=== PATIENT | female | born 1975 | race American Indian/Alaskan Native ===

== ENCOUNTER 2016-09-15 03:14 | Inpatient (IN) | payer BC, OTHER ==
[2016-09-15] MEDS ORDERED: TYLENOL ONE (03:29)
[2016-09-15] MEDS ORDERED: TYLENOL PO ONE (03:40)
[2016-09-15 04:36] LABS: Anion Gap 18 mmol/L; BUN/Creatinine Ratio 11.66; Basophils % (Auto) 0.4 % (0.0-1.8); Blood Urea Nitrogen 7 mg/dL (7-17); Calcium 8.2 mg/dL (8.4-10.2); Carbon Dioxide 22 mmol/L (22-30); Eosinophils % (Auto) 2.1 % (0.0-4.3); Glucose 131 mg/dL (65-100); Hematocrit 38.9 % (30.3-42.9); Hemoglobin 12.3 gm/dl (10.1-14.3); Mean Corpuscular HGB Conc 32 % (30-34); Mean Corpuscular Hemoglobin 26 pg (28-32); Mean Corpuscular Volume 84 fl (79-97); Platelet Count 319 K/mm3 (140-440); Potassium 3.7 mmol/L (3.6-5.0); Red Blood Count 4.67 M/mm3 (3.65-5.03); Red Cell Distribution Width 14.5 % (13.2-15.2); Sodium 140 mmol/L (137-145); White Blood Count 12.3 K/mm3 (4.5-11.0)
[2016-09-15 05:00] LABS: INR 0.96 (0.87-1.13)
[2016-09-15 05:01] LABS: Partial Thromboplastin Time 31.4 Sec. (24.2-36.6)
[2016-09-15 05:22] LABS: Bilirubin,Urine NEG (Negative); Blood,Urine SM (Negative); Ketones,Urine NEG (Negative); Leukocyte Esterase,Urine NEG (Negative); Mucus,Urine FEW /HPF; Nitrite,Urine NEG (Negative); Protein,Urine <15 mg/dL mg/dL (Negative); Urobilinogen,Urine < 2.0 mg/dL (<2.0)
--- NOTE | 2016-09-15 13:02 | Emergency Department Report ---
ED Chest Pain HPI - General Chief Complaint: Chest Pain Stated Complaint: CHEST PAIN/L ARM NUMBNESS Time Seen by Provider: 09/15/16 12:49 Source: patient Mode of arrival: Ambulatory Limitations: No Limitations - History of Present Illness Initial Comments: This is a 41-year-old Afro-[place]ian female presents the emergency department from home with complaint of midsternal chest pain that began yesterday morning, , and has been going on since. However the pain has improved but not resolved. It is associated with some left hand and arm numbness and/or paresthesias. She has some intermittent shortness of breath as well. The patient says that the pain worsens with laying down flat and certain movements of her body. There are no alleviating factors. She did not take anything for symptoms prior to presentation. She denies any past medical history and is not on any chronic medications. No Recent travel or sick contacts at home. She does not have a primary care doctor or bookmaker's clerk. Severity scale (0 -10): 8 - Related Data Previous Rx's Medication Instructions Recorded Last Taken Type Cyclobenzaprine [Flexeril 10mg] 10 mg PO TID PRN #12 tablet 04/24/14 Unknown Rx Doxycycline [Vibramycin CAP] 100 mg PO BID #14 capsule 04/24/14 Unknown Rx Pantoprazole [Protonix] 20 mg PO BID #60 tablet. 04/30/14 Unknown Rx Amoxicillin/K Clav Tab [Augmentin 1 each PO Q8HR #20 tablet 07/08/14 Unknown Rx 500 mg] Lisinopril [Zestril TAB] 10 mg PO QDAY #20 tablet 07/08/14 Unknown Rx predniSONE [Deltasone] 20 mg PO BID #8 tablet 07/08/14 Unknown Rx HYDROcodone/APAP 5-325 [[place] 1 each PO Q8HR PRN #14 tablet 01/08/15 Unknown Rx 5-325 mg TAB] Meloxicam 15 mg PO QDAY #30 tablet 01/08/15 Unknown Rx Amoxicillin/K Clav Tab [Augmentin 1 tab PO Q12HR #20 tab 04/27/15 Unknown Rx 875 mg] Promethazine /Codeine 5 ml PO Q6H PRN #120 ml 04/27/15 Unknown Rx [Phenergan/Codeine 6.25-10 mg/5Ml] Allergies Allergy/AdvReac Type Severity Reaction Status Date / Time No Known Allergies Allergy Verified 07/12/15 22:06 MARGAUX score - Margaux Score Age > 65: (0) No Aspirin use within the Past 7 Days: (0) No 3 or more CAD Risk Factors: (0) No 2 or more Angina events in past 24 hrs: (1) Yes Known CAD with more than 50% Stenosis: (0) No Elevated Cardiac Markers: (0) No ST Deviation Greater than 0.5mm: (0) No MARGAUX Score: 1 ED Review of Systems ROS: Stated complaint: CHEST PAIN/L ARM NUMBNESS Other details as noted in HPI Comment: All other systems reviewed and negative Constitutional: denies: chills, fever Eyes: denies: eye pain, eye discharge, vision change ENT: denies: ear pain, throat pain Respiratory: shortness of breath. denies: cough, wheezing Cardiovascular: chest pain. denies: palpitations Gastrointestinal: denies: abdominal pain, nausea, diarrhea Genitourinary: denies: urgency, dysuria, discharge Musculoskeletal: denies: back pain, joint swelling, arthralgia Skin: denies: rash, lesions Neurological: denies: headache, weakness, paresthesias ED Past Medical Hx - Past Medical History Previous Medical History?: Yes Hx Hypertension: Yes Additional medical history: LEFT ROTATOR CUFF TEAR. Obesity - Surgical History Past Surgical History?: Yes Additional Surgical History: tubal ligation, L wrist surgery - Social History Smoking Status: Never Smoker Substance Use Type: None - Medications Home Medications: Home Medications Medication Instructions Recorded Confirmed Last Taken Type Cyclobenzaprine [Flexeril 10mg] 10 mg PO TID PRN #12 tablet 04/24/14 Unknown Rx Doxycycline [Vibramycin CAP] 100 mg PO BID #14 capsule 04/24/14 Unknown Rx Pantoprazole [Protonix] 20 mg PO BID #60 tablet. 04/30/14 Unknown Rx Amoxicillin/K Clav Tab [Augmentin 1 each PO Q8HR #20 tablet 07/08/14 Unknown Rx 500 mg] Lisinopril [Zestril TAB] 10 mg PO QDAY #20 tablet 07/08/14 Unknown Rx predniSONE [Deltasone] 20 mg PO BID #8 tablet 07/08/14 Unknown Rx HYDROcodone/APAP 5-325 [[place] 1 each PO Q8HR PRN #14 tablet 01/08/15 Unknown Rx 5-325 mg TAB] Meloxicam 15 mg PO QDAY #30 tablet 01/08/15 Unknown Rx Amoxicillin/K Clav Tab [Augmentin 1 tab PO Q12HR #20 tab 04/27/15 Unknown Rx 875 mg] Promethazine /Codeine 5 ml PO Q6H PRN #120 ml 04/27/15 Unknown Rx [Phenergan/Codeine 6.25-10 mg/5Ml] ED Physical Exam - General Limitations: No Limitations - Other Other exam information: GENERAL: The patient is well-developed well-nourished. HEENT: Normocephalic. Atraumatic. Extraocular motions are intact. Patient has moist mucous membranes. Pupils equal reactive to light bilaterally. NECK: Supple. Trachea is midline. CHEST/LUNGS: Clear to auscultation. There is no respiratory distress noted. Patient's midsternal chest discomfort is reproducible to palpation of the chest wall. HEART/CARDIOVASCULAR: Regular. There is no tachycardia. There is no gallop rub or murmur. ABDOMEN: Abdomen is soft, nontender. Patient has normal bowel sounds. There is no abdominal distention. Obese habitus. SKIN: There is no rash. There is no edema. There is no diaphoresis. NEURO: The patient is awake, alert, and oriented. The patient is cooperative. The patient has no focal neurologic deficits. The patient has normal speech. MUSCULOSKELETAL: There is no tenderness or deformity. There is no limitation range of motion. There is no evidence of acute injury. Radial pulse +2 over 4 bilaterally. Cap refill less than 2 seconds. ED Course Vital Signs 09/15/16 09/15/16 09/15/16 03:20 11:24 13:20 Temperature 98.9 F 97.6 F 98.8 F Pulse Rate 87 75 70 Respiratory 20 18 19 Rate Blood Pressure 153/101 Blood Pressure 158/97 151/73 [Right] O2 Sat by Pulse 100 100 99 Oximetry 09/15/16 09/15/16 13:46 13:47 Temperature Pulse Rate Respiratory 20 20 Rate Blood Pressure Blood Pressure [Right] O2 Sat by Pulse Oximetry ED Medical Decision Making - Lab Data Result diagrams: 09/15/16 03:36 09/15/16 03:36 - EKG Data -: EKG Interpreted by Me EKG shows normal: sinus rhythm (with sinus arrhythmia), axis, intervals, QRS complexes, ST-T waves Rate: normal - EKG Data When compared to previous EKG there are: previous EKG unavailable Interpretation: normal EKG (sinus rhythm with sinus arrhythmia) - Radiology Data Radiology results: image reviewed interpreted by me: Chest x-ray did not show any acute process. Heart is normal shape and size. No effusions. No pneumothorax. No signs of pneumonia seen. - Medical Decision Making 41-year-old female presents with 24-36 hour midsternal chest pain with some left arm numbness and her paresthesias and intermittent shortness of breath. EKG does not show any signs of ST elevation PA. So far the patient has a negative troponins 2 and negative d-dimer. Patient's midsternal chest pain is reproducible, however it does not improve with pain medication and the patient continues to have left arm numbness/paresthesias. Chest x-ray does not show any acute process. Patient has a history of hypertension and morbid obesity. She has not had a full cardiac workup including stress test since April 2014. Therefore my plan will be to admit the patient to the hospital for further evaluation, serial troponins and either a stress test or cardio consultation. Patient has been accepted for admission by the hospitalist, Dr. Bhakta. - Differential Diagnosis PA, CHF, PE, pneumonia Critical Care Time: No Critical care attestation.: If time is entered above; I have spent that time in minutes in the direct care of this critically ill patient, excluding procedure time. ED Disposition Clinical Impression: Numbness and tingling in left arm Chest pain Qualifiers: Chest pain type: unspecified Qualified Code(s): R07.9 - Chest pain, unspecified Hypertension Qualifiers: Hypertension type: essential hypertension Qualified Code(s): I10 - Essential ( primary) hypertension Disposition: OP ADMITTED IP TO THIS HOSP Is pt being admited?: Yes Condition: Stable Instructions: Chest Pain (ED), Hypertension (ED) Referrals: PRIMARY CARE, [Primary Care Provider] - 3-5 Days Time of Disposition: 14:55
[2016-09-15] MEDS ORDERED: BABY ASPIRIN PO ONE (13:07)
[2016-09-15] MEDS ORDERED: PERCOCET 5/325 PO ONE (13:07)
--- NOTE | 2016-09-15 13:34 | XRay Report ---
PORTABLE CHEST: Cough An AP portable view of the chest demonstrates a normal cardiac contour considering the limits of this technique. The lungs are clear with no evidence of infiltrate, fluid or failure. IMPRESSION: Normal portable chest.
--- NOTE | 2016-09-15 15:03 | Admit Criteria Form ---
Admission Criteria Documentation: CARDIOLOGY GRG Clinical Indications for Admission to Inpatient Care ( Place 'X' for any and all applicable criteria): Hospital admission is needed for appropriate care of the patient because of ANY ONE of the following (1): [ ] I. Hemodynamic instability as indicated by ALL of the following (1)(2)(3) (4)(5) [ ]a) Vital signs or other findings not as expected for chronic patient condition or baseline [ ]b) Instability indicated by ANY ONE of the following: [ ]i) Hypotension [ ]ii) Symptomatic Tachycardia unresponsive to treatment ( e.g., analgesia, fluids, sedation as indicated) [ ]iii) Inadequate perfusion indicated by ANY ONE of the following: [ ] 1) Lactic acidosis (> 2 mmol/L) [ ] 2) New abnormal capillary refill (> 3 seconds) [ ] 3) Reduced urine output [ ] 4) New altered mental status [ ]iv) Orthostatic vital sign changes unresponsive to treatment (e.g., fluids) [ ]v) IV inotropic or vasopressor medication required to maintain adequate blood pressure or perfusion [ ] II. Severe heart failure as indicated by ANY ONE of the following(17)(18) [ ]a) Respiratory distress [ ]b) Hypotension [ ]c) Anasarca (refractory to outpatient therapy) [ ]d) Cardiac arrhythmias of immediate concern [ ]e) Myocardial ischemia [ ] III. Cardiac arrhythmias or findings of immediate concern indicated by ANY ONE of the following (19)(20): [ ] a) Heart rhythms that are inherently dangerous or unstable indicated by ANY ONE of the following (21)(22)(23): [ ] i) Resuscitated ventricular fibrillation or cardiac arrest [ ] ii) Ventricular escape rhythm [ ] iii) Sustained ventricular tachycardia (30 seconds or more of ventricular rhythm at greater than 100 beats per minute) [ ] iv) Nonsustained ventricular tachycardia and ANY ONE of the following: [ ] 1) Suspected cardiac ischemia as cause or consequence of ventricular tachycardia [ ] 2) In setting of acute myocarditis [ ] b) Unstable cardiac conduction defects indicated by ANY ONE of the following(23)(24)(25) [ ] i) Type II second-degree atrioventricular block [ ]ii) Third-degree atrioventricular block [ ]iii) New-onset left bundle branch block with suspected myocardial ischemia [ ]c) Any heart rhythm and ANY ONE of the following (21)(22)(26)(27) (28) [ ] i) Continuous long-term ECG monitoring needed (e.g., initiation of drug requiring monitoring for more than 24 hours) [ ] ii) Patient has automatic implanted cardioverter defibrillator that is repeatedly firing, malfunctioning, or in need of immediate adjustment of settings beyond the scope of ambulatory or observation care [ ]d) Heart rhythms of concern due to ANY ONE of the following: [ ] i) Hypotension [ ] ii) Respiratory distress [ ] iii) Association with other significant symptoms (e.g., bradycardia with syncope or ongoing dizziness, supraventricular tachycardia with chest pain (14)(15)(17) [ ] IV. Monitoring for cardiac contusion beyond the scope of observation care needed [A](30)(31)(32) [ ] V. Surgical or device complication (e.g., valve replacement complication , pacemaker dysfunction) (35)(41)(44)(45)(46) [ ] . Inpatient palliative care needed. [B](49) Also use Inpatient Palliative Care Criteria [ ] VII. Nonbacterial thrombotic (marantic) endocarditis (36)(43)(47)(48) [X] VIII. Cardiology condition, symptom, or finding for which emergency and observation care has failed or are not considered appropriate. [ ] IX. Acute valvular disease requiring inpatient as indicated by ANY ONE of the following (41) [ ]a) Acute valvular regurgitation (42) [ ]b) Noninfectious valvulitis (43) [ ]c) Obstructive valve thrombosis [ ]d) Paravalvular leak [ ]e) Other significant valvular disorder remaining after emergency or observation level of care (as appropriate) [ ]X. Pericardial disease requiring inpatient treatment as indicated by ANY ONE of the following (33)(34)(35)(36)(37) [ ]a) Suspected tamponade (38)(39)(40) [ ]b) Hemopericardium [ ]c) Other significant pericardial disorder remaining after emergency or observation level of care (as appropriate) [ ] XI. Cardiac ischemia beyond scope of emergency and observation care. [ ] XII. Hypertension requiring inpatient treatment as indicated by ANY ONE of the following (6)(7)(8) [ ]a) SBP greater than 220 mm Hg or DBP greater than 120 mmHg despite treatment [ ]b) SBP greater than 140 mm Hg or DBP greater than 100 mm Hg with evidence of acute end organ damage as indicated by ANY ONE of the following [ ] i) Altered mental status [ ] ii) Acute renal failure as indicated by new onset of ANY ONE of the following (9)(10)(11)(12)(13) [ ]1) 3-fold rise in serum creatinine from baseline [ ]2) Serum creatinine greater than 4 mg/dL ( 354 micromoles/L) with acute rise greater than 0.5 mg/dL (44.2 micromoles/L) [ ]3) Reduction of more than 75% in estimated glomerular filtration rate from baseline [ ]4) Estimated glomerular filtration rate less than 35 mL/min/1.73m2 (0.59 mL/sec/1.73m2) in child up to 18 years of age [ ]5) Cessation of urine output indicated by ALL of the following [ ]A. Adequate volume status [ ]B. Inadequate urine output as indicated by ANY ONE of the following [ ]a. Urine output less than 0.3 mL/kg/hr for 24 hours [ ]b. Anuria (urine output less than 0.1 mL/kg/hr) for 12 hours [ ] iii) Aortic dissection [ ] iv) Myocardial Ischemia [ ] v) Left ventricular heart failure [ ]vi) Retinal Hemorrhage [ ]vii) Other significant finding [ ]c) Hypertension in child requiring inpatient treatment as indicated by ALL of the following(14)(15)(16) [ ] i) Outpatient treatment not effective, not available, or not appropriate [ ]ii) SBP or DBP greater than 95th percentile for age [ ]iii) Evidence of acute end organ damage as indicated by ANY ONE of the following [ ]1) Altered mental status [ ]2) Acute renal failure as indicated by new onset of ANY ONE of the following(9)(10)(11)(12)(13) [ ]A. 3-fold rise in serum creatinine from baseline [ ]B. Serum creatinine greater than 4 mg/dL (354 micromoles/L) with acute rise greater than 0.5 mg/dL (44.2 micromoles/L) [ ]C. Reduction of more than 75% in estimated glomerular filtration rate from baseline [ ]D. Estimated glomerular filtration rate less than 35 mL/min/1.73m2 (0.59 mL/sec/1.73m2) in child up to 18 years of age [ ]E. Cessation of urine output indicated by ALL of the following [ ]a. Adequate volume status [ ]b. Inadequate urine output as indicated by ANY ONE of the following [ ]i) Urine output less than 0.3 mL/kg/hr for 24 hours [ ]ii) Anuria ( urine output less than 0.1 mL/kg/hr) for 12 hours [ ]3) Severe headache [ ]4) Visual disturbance [ ]5) Retinal hemorrhage [ ]6) Other significant finding [ ]XIII. Complications of transplanted heart indicated by ANY ONE of the following(61): [ ]a) Acute graft rejection requiring inpatient management (eg, intravenous immunosuppression)(62)(63) [ ]b) Acute graft heart failure indicated by ANY ONE of the following(64): [ ]i) Hemodynamic instability [ ]ii) Cardiac arrhythmias of immediate concern [ ]iii) Pulmonary edema that is very severe (eg, mechanical ventilation needed, imminent or likely, need for 100% oxygen to keep oxygen saturation above 90%) [ ]iv) Pulmonary edema that is persistent as indicated by ALL of the following: [ ]1) New need for oxygen therapy to keep oxygen saturation above 90% (or increased FiO2 need from baseline) [ ]2) Has not improved sufficiently with emergency department or observation care IV diuretics or other heart failure treatments[E] [ ]v) Altered mental status that is severe or persistent [ ]vi) Increased creatinine (new on laboratory test) with reduction of more than 50% in estimated glomerular filtration rate from baseline [ ]vii) Progressively (ongoing) rising creatinine (known from past laboratory test) with reduction of more than 25% in estimated glomerular filtration rate from baseline [ ]viii) Acute renal failure [ ]ix) Acute peripheral ischemia (eg, examination shows pulseless, cool, mottled, or cyanotic extremity) [ ]x) Pulmonary artery catheter monitoring needed [ ]xi) Other sign or symptom of heart failure requiring inpatient treatment (ie, too severe or not responsive to outpatient and observation care treatment) [ ]c) Infection requiring inpatient management (eg, Hemodynamic instability, need for intravenous antimicrobial treatment)(66)(67)(68)(69)(70) [ ]d) Cardiac allograft vasculopathy requiring inpatient management ( eg evidence of cardiac ischemia)(71) [ ]e) Other complication of transplanted heart (eg, stroke, severe pulmonary hypertension, severe valvular dysfunction) requiring inpatient management(72) The original [facility] content created by [facility] has been revised. The portions of the content which have been revised are identified through the use of italic text or in bold, and [facility] has neither reviewed nor approved the modified material. All other unmodified content is copyright [facility] [employer]. Please see references footnoted in the original [facility] [employer] edition 2016 Admission Criteria Met: Yes
--- NOTE | 2016-09-15 15:55 | History and Physical Report ---
History of Present Illness Date of examination: 09/15/16 Chief complaint: Chest pain History of present illness: 21-year-old -[place] female with no significant past medical history presented to ED complaining of midsternal chest pain that started yesterday. Sharp pain, constant, 9 out of 10, with numbness of the left arm. Associated with mild shortness of breath and diaphoresis. Patient denied constipation, leg swelling, cough. REVIEW OF SYSTEMS: GENERAL: no weight change, no fatigue, no fever HEAD: no head ache EYES: no blurry vision, no acute visual loss EARS: no hearing loss, no discharge, no earache NOSE: no stuffiness, no sneezing, no discharge MOUTH, THROAT AND NECK: no bleeding gums, no sore throat, no swollen neck CARDIAC: no palpitations, no dyspnea on exertion, no orthopnea, no PND, no edema , + chest pain RESPIRATORY:mild shortness of breath, no wheeze, no cough, no sputum, no hemoptysis, no asthma GI: no decreased appetite, no nausea, no vomiting, no dysphagia, no diarrhea, no constipation, no abdominal pain URINARY: no change in frequency, no urgency, no polyuria, no hematuria, no incontinence MUSCULOSKELETAL: no muscle weakness, no pain, no joint stiffness NEUROLOGIC: no loss of sensation/numbness, no tingling, no tremors, no weakness/ paralysis HEMATOLOGIC: no anemia, no easy bruising SKIN: no rashes ENDOCRINE: no heat/cold intolerance, no polyuria, no polydipsia, no thyroid problems, no diabetes PSYCHIATRIC: no anxiety, no depression, no suicidal ideations Past History Past Medical History: No medical history Past Surgical History: Other (tubal ligation) Social history: full code. denies: smoking, alcohol abuse, prescription drug abuse, IV drug use Family history: no significant family history Medications and Allergies Allergies Allergy/AdvReac Type Severity Reaction Status Date / Time No Known Allergies Allergy Verified 07/12/15 22:06 Home Medications Medication Instructions Recorded Confirmed Last Taken Type No Known Home Medications [No 09/15/16 09/15/16 Unknown History Reported Home Medications] Exam - Physical Exam Narrative exam: Not in cardiopulmonary distress. The patient appeared well nourished and normally developed. Vital signs as documented. Head exam is unremarkable. No scleral icterus . Neck is without jugular venous distension, thyromegaly, or carotid bruits. Lungs are clear to auscultation. Cardiac exam reveals regular rate and Rhythm. First and second heart sounds normal. No murmurs, rubs or gallops. Abdominal exam reveals normal bowel sounds, no masses, no organomegaly and no aortic enlargement. Extremities are nonedematous and both femoral and pedal pulses are normal. DIGITAL ACCOUNT COORDINATOR: Alert and oriented 3. No focal weakness. - Constitutional Vitals: Temp Pulse Resp BP Pulse Ox 98.8 F 70 20 151/73 99 09/15/16 13:20 09/15/16 13:20 09/15/16 13:47 09/15/16 13:20 09/15/16 13:20 Results - Labs CBC & Chem 7: 09/15/16 03:36 09/15/16 03:36 Labs: Laboratory Last Values WBC 12.3 K/mm3 (4.5-11.0) H 09/15/16 03:36 RBC 4.67 M/mm3 (3.65-5.03) 09/15/16 03:36 Hgb 12.3 gm/dl (10.1-14.3) 09/15/16 03:36 Hct 38.9 % (30.3-42.9) 09/15/16 03:36 MCV 84 fl (79-97) 09/15/16 03:36 MCH 26 pg (28-32) L 09/15/16 03:36 MCHC 32 % (30-34) 09/15/16 03:36 RDW 14.5 % (13.2-15.2) 09/15/16 03:36 Plt Count 319 K/mm3 (140-440) 09/15/16 03:36 Lymph % (Auto) 19.0 % (13.4-35.0) 09/15/16 03:36 [place] % (Auto) 7.5 % (0.0-7.3) H 09/15/16 03:36 Eos % (Auto) 2.1 % (0.0-4.3) 09/15/16 03:36 Baso % (Auto) 0.4 % (0.0-1.8) 09/15/16 03:36 Lymph # 2.3 K/mm3 (1.2-5.4) 09/15/16 03:36 [place] # 0.9 K/mm3 (0.0-0.8) H 09/15/16 03:36 Eos # 0.3 K/mm3 (0.0-0.4) 09/15/16 03:36 Baso # 0.0 K/mm3 (0.0-0.1) 09/15/16 03:36 Seg Neutrophils % 71.0 % (40.0-70.0) H 09/15/16 03:36 Seg Neutrophils # 8.8 K/mm3 (1.8-7.7) H 09/15/16 03:36 PT 12.7 Sec. (12.2-14.9) 09/15/16 03:36 INR 0.96 (0.87-1.13) 09/15/16 03:36 APTT 31.4 Sec. (24.2-36.6) 09/15/16 03:36 D-Dimer 175.16 ng/mlDDU (0-234) 09/15/16 03:36 Sodium 140 mmol/L (137-145) 09/15/16 03:36 Potassium 3.7 mmol/L (3.6-5.0) 09/15/16 03:36 Chloride 104.0 mmol/L (98-107) 09/15/16 03:36 Carbon Dioxide 22 mmol/L (22-30) 09/15/16 03:36 Anion Gap 18 mmol/L 09/15/16 03:36 BUN 7 mg/dL (7-17) 09/15/16 03:36 Creatinine 0.6 mg/dL (0.7-1.2) L 09/15/16 03:36 Estimated GFR > 60 ml/min 09/15/16 03:36 BUN/Creatinine Ratio 11.66 % 09/15/16 03:36 Glucose 131 mg/dL (65-100) H 09/15/16 03:36 Calcium 8.2 mg/dL (8.4-10.2) L 09/15/16 03:36 Troponin T < 0.010 ng/mL (0.00-0.029) 09/15/16 09:21 HCG, Qual Negative (Negative) 09/15/16 03:36 Urine Color Yellow (Yellow) 09/15/16 04:37 Urine Turbidity Clear (Clear) 09/15/16 04:37 Urine pH 6.0 (5.0-7.0) 09/15/16 04:37 Ur Specific [place] 1.012 (1.003-1.030) 09/15/16 04:37 Urine Protein <15 mg/dl mg/dL (Negative) 09/15/16 04:37 Urine Glucose (UA) Neg mg/dL (Negative) 09/15/16 04:37 Urine Ketones Neg mg/dL (Negative) 09/15/16 04:37 Urine Blood Sm (Negative) 09/15/16 04:37 Urine Nitrite Neg (Negative) 09/15/16 04:37 Urine Bilirubin Neg (Negative) 09/15/16 04:37 Urine Urobilinogen < 2.0 mg/dL (<2.0) 09/15/16 04:37 Ur Leukocyte Esterase Neg (Negative) 09/15/16 04:37 Urine WBC (Auto) 1.0 /HPF (0.0-6.0) 09/15/16 04:37 Urine RBC (Auto) 0.0 /HPF (0.0-6.0) 09/15/16 04:37 U Epithel Cells (Auto) 4.0 /HPF (0-13.0) 09/15/16 04:37 Urine Mucus Few /HPF 09/15/16 04:37 Assessment and Plan Assessment and plan: Chest pain - Repeat cardiac enzymes and EKG - Stress test tomorrow Obesity - counselled about calorie restriction DVT prophylaxis - Lovenox Disposition - to telemetry floor. Advance Directives: Yes VTE prophylaxis?: Chemical Plan of care discussed with patient/family: Yes
[2016-09-15] MEDS ORDERED: SODIUM CHLORIDE FLUSH SYRINGE 10 ML IV PRN (16:07)
[2016-09-15] MEDS: MORPHINE IV PRN ×2 (19:11→23:53)
[2016-09-15 19:51] LABS: Creatine Kinase MB 1.3 ng/mL (0.0-4.0)
[2016-09-15 19:52] LABS: Creatine Kinase 175 units/L (30-135)
[2016-09-15 22:52] LABS: Creatine Kinase MB 1.3 ng/mL (0.0-4.0)
[2016-09-15 22:53] LABS: Creatine Kinase 156 units/L (30-135)
[2016-09-16] MEDS: MORPHINE IV PRN ×2 (04:57→15:49)
[2016-09-16] MEDS ORDERED: LEXISCAN IV ONE ×2 (08:26→10:34)
[2016-09-16] MEDS ORDERED: BABY ASPIRIN PO SCH (10:00)
[2016-09-16 13:41] LABS: Basophils % (Auto) 0.3 % (0.0-1.8); Eosinophils % (Auto) 3.1 % (0.0-4.3); Hematocrit 37.1 % (30.3-42.9); Hemoglobin 12.1 gm/dl (10.1-14.3); Mean Corpuscular HGB Conc 33 % (30-34); Mean Corpuscular Hemoglobin 27 pg (28-32); Mean Corpuscular Volume 82 fl (79-97); Platelet Count 314 K/mm3 (140-440); Red Blood Count 4.51 M/mm3 (3.65-5.03); Red Cell Distribution Width 14.7 % (13.2-15.2); White Blood Count 8.9 K/mm3 (4.5-11.0)
[2016-09-16 14:06] LABS: Anion Gap 14 mmol/L; BUN/Creatinine Ratio 11.66; Blood Urea Nitrogen 7 mg/dL (7-17); Calcium 8.4 mg/dL (8.4-10.2); Carbon Dioxide 27 mmol/L (22-30); Chloride 102.5 mmol/L (98-107); Glucose 136 mg/dL (65-100); Potassium 3.7 mmol/L (3.6-5.0); Sodium 140 mmol/L (137-145)
[2016-09-16] MEDS ORDERED: NACL ONE (15:29)
--- NOTE | 2016-09-16 16:21 | Discharge Summary ---
Providers - Providers Date of Admission: 09/15/16 20:26 Date of discharge: 09/16/16 Attending physician: ROSA ELENA BLANDON MD Primary care physician: RN RELIEF CHARGE Hospitalization Reason for admission: chest pain Condition: Stable Hospital course: 21-year-old -[place] female with no significant past medical history presented to ED complaining of midsternal chest pain that started yesterday. Sharp pain, constant, 9 out of 10, with numbness of the left arm. Associated with mild shortness of breath and diaphoresis. Patient denied constipation, leg swelling, cough. Patient presented to have a stress test that was negative. Again, further discussion the patient denies any relationship with this pain to food. The pain is left midsternal area. With no right upper quadrant pain. I did discuss the findings of the CTA which I did to rule out pulmonary embolism due to the pleuritic nature also of this pain. It is also reproducible. This included a findings of lesion on the kidney for which the patient is to have a follow-up with a primary care physician. Weight loss although it was also discussed in detail. Discharge diagnosis * Atypical chest pain likely costochondritis * Cholelithiasis * Region in the upper pole of the bilateral kidneys * Morbid obesity Disposition: DISCHARGED TO HOME OR SELFCARE Time spent for discharge: 35 mins Core Measure Documentation - Palliative Care Palliative Care/ Comfort Measures: Not Applicable - Core Measures Any of the following diagnoses?: none - VTE Discharge Requirements Deep Vein Thrombosis/Pulmonary Embolism Present on Admission: No Exam - Physical Exam Narrative exam: VITAL SIGNS: Reviewed. GENERAL: The patient appeared well nourished and normally developed. Vital signs as documented. HEAD: No signs of head trauma. EYES: Pupils are equal. Extraocular motions intact. EARS: Hearing grossly intact. MOUTH: Oropharynx is normal. NECK: No adenopathy, no JVD. CHEST: Chest with clear breath sounds bilaterally. No wheezes, rales, or rhonchi. CARDIAC: Regular rate and rhythm. S1 and S2, without murmurs, gallops, or rubs. VASCULAR: No Edema. Peripheral pulses normal and equal in all extremities. ABDOMEN: Soft, without detectable tenderness. No sign of distention. No rebound or guarding, and no masses palpated. Bowel Sounds normal. MUSCULOSKELETAL: Muscle wall tenderness in the left substernal area Good range of motion of all major joints. Extremities without clubbing, cyanosis or edema. NEUROLOGIC EXAM: Alert and oriented x 3. No focal sensory or strength deficits. Speech normal. Follows commands. PSYCHIATRIC: Mood normal. SKIN: No rash or lesions. - Constitutional Vitals: Temp Pulse Resp BP Pulse Ox 97.7 F 104 H 20 159/93 100 09/16/16 08:00 09/16/16 11:01 09/16/16 15:49 09/16/16 11:01 09/16/16 05:37 Plan Activity: advance as tolerated, fall precautions Diet: low fat Special Instructions: smoking cessation Follow up with: PRIMARY CAREMD [Primary Care Provider] - 3-5 Days
--- NOTE | 2016-09-16 16:27 | Cat Scan Report ---
FINAL REPORT EXAM: CT ANGIO CHEST HISTORY: PE TECHNIQUE: Enhanced CT of the chest at 2.5 mm axial intervals following a pulmonary embolism protocol. Coronal and sagittal imaging were also obtained. Oblique coronal MIP projections were obtained. Contrast: 100 ml of Omnipaque 350 given IV. PRIORS: None. FINDINGS: There is no evidence for pulmonary embolism in the main pulmonary artery, right and left pulmonary arteries or their major distributions. However, CT does not exclude distal pulmonary emboli. There are numerous bilateral linear areas of atelectasis in each lung base, lingula, and right middle lobe. Otherwise, the lung parenchyma are expanded and clear with no evidence for parenchymal nodules, infiltrates, congestion, or pleural effusion. There is no evidence for mediastinal, hilar, or axillary adenopathy. Cardiovascular structures are within normal limits. Images through the lung bases include the upper abdomen which show multiple gallstones in the gallbladder. There is an ill-defined rounded area of hypodensity in the upper pole right kidney which may represent a cyst. This measures approximately 1.9 cm (axial image 106) and ultrasound is suggested. Similar finding is seen in the upper pole left kidney as well although not as defined. Bony structures demonstrate no focal abnormalities. Large spurs off the anterior aspect of the lower thoracic spine is seen. IMPRESSION: 1. no evidence for pulmonary embolism. 2. bilateral linear atelectasis. 3. cholelithiasis. 4. Areas of hypodensity in the upper pole of each kidney, ill-defined on this exam. Ultrasound is warranted to exclude cysts versus mass.
[2016-09-16 18:57] VITALS: BP 131/73
== END 2016-09-16 19:45 | disposition home or self-care (01) | DRG 206 ==
LOC: ED 03:14 → 4A 20:26
PROVIDERS: ADMIT Internal Medicine; ATTEND Internal Medicine
DX: M94.0 Chondrocostal junction syndrome [Tietze] (principal); Z68.41 Body mass index [BMI] 40.0-44.9, adult; I10 Essential (primary) hypertension; E66.9 Obesity, unspecified; E66.01 Morbid (severe) obesity due to excess calories; K80.20 Calculus of gallbladder without cholecystitis without obstruction; Z98.51 Tubal ligation status
CPT/HCPCS: 36415; 71010; 71275; 78452; 80048; 80061; 81001; 82550; 82553; 84484; 84703; 85025; 85379; 85610; 85730; 93005; 93010; 93017; 99285; A9502; J2270; J2785; Q9967

== ENCOUNTER 2019-05-13 09:08 | Emergency (ER) | payer SELFPAY ==
[2019-05-13] MEDS ORDERED: ASPIRIN 325 MG TAB PO ONE (09:48)
[2019-05-13] MEDS ORDERED: ASPIRIN 325 MG TAB ONE (09:51)
--- NOTE | 2019-05-13 10:42 | XRay Report ---
CHEST 1 VIEW INDICATION: Chest Pain. COMPARISON: 09/15/2016. FINDINGS: Support devices: None. Heart: Within normal limits. Lungs/Pleura: No acute air space or interstitial disease. Additional findings: None. IMPRESSION: No acute abnormality. Signer Name: Thierry Shafer MD Signed: 05/13/2019 10:38 AM Workstation Name: [id number]
[2019-05-13 11:07] LABS: Basophils % (Auto) 0.5 % (0.0-1.8); Eosinophils # (Auto) 0.2 K/mm3 (0.0-0.4); Eosinophils % (Auto) 2.8 % (0.0-4.3); Hemoglobin 12.2 gm/dl (10.1-14.3); Lymphocytes # (Auto) 1.3 K/mm3 (1.2-5.4); Lymphocytes % (Auto) 20.3 % (13.4-35.0); Mean Corpuscular HGB Conc 33 % (30-34); Mean Corpuscular Volume 83 fl (79-97); Monocytes # (Auto) 0.5 K/mm3 (0.0-0.8); Platelet Count 356 K/mm3 (140-440); Red Blood Count 4.44 M/mm3 (3.65-5.03); Red Cell Distribution Width 14.3 % (13.2-15.2)
[2019-05-13 11:31] LABS: BUN/Creatinine Ratio 15; Blood Urea Nitrogen 9 mg/dL (7-17); Calcium 8.6 mg/dL (8.4-10.2); Hemolysis Index 2
--- NOTE | 2019-05-13 11:31 | Emergency Department Report ---
ED Chest Pain HPI - General Chief Complaint: Chest Pain Stated Complaint: CHESTPAIN/LFT SHOULDER PAIN Time Seen by Provider: 05/13/19 10:19 Source: patient Mode of arrival: Ambulatory Limitations: No Limitations - History of Present Illness Initial Comments: 44 yo AA female comes to ER with l sided cp rad to her neck and LA. She has had this before. Has been seen in ER for the same. She has no cardiac hx. Takes no home meds and has not followed up with pcp regarding her pain. Movement makes the pain worse. Rest makes it better. -: Gradual, month(s) Pain Radiation: LUE Severity scale (0 -10): 8 Quality: aching Consistency: intermittent Improves With: remaining still Worsens With: movement Treatments Prior to Arrival: none Aspirin use within the Past 7 Days: (0) No - Related Data On Oral Contraceptives: No Previous Rx's Medication Instructions Recorded Last Taken Type Cyclobenzaprine [Flexeril] 10 mg PO TID PRN #10 tablet 05/13/19 Unknown Rx predniSONE [Deltasone] 20 mg PO DAILY #5 tablet 05/13/19 Unknown Rx Allergies Allergy/AdvReac Type Severity Reaction Status Date / Time No Known Allergies Allergy Verified 05/13/19 09:47 Heart Score - HEART Score History: Slightly suspicious EKG: Normal Age: < 45 Risk factors: No known risk factors Troponin: < normal limit HEART Score: 0 ED Review of Systems ROS: Stated complaint: CHESTPAIN/LFT SHOULDER PAIN Other details as noted in HPI Comment: All other systems reviewed and negative ED Past Medical Hx - Past Medical History Previous Medical History?: Yes Hx Hypertension: Yes Additional medical history: LEFT ROTATOR CUFF TEAR. Obesity - Surgical History Past Surgical History?: Yes Additional Surgical History: Tubal ligation - Family History Family history: no significant - Social History Smoking Status: Never Smoker Substance Use Type: None - Medications Home Medications: Home Medications Medication Instructions Recorded Confirmed Last Taken Type Cyclobenzaprine [Flexeril] 10 mg PO TID PRN #10 tablet 05/13/19 Unknown Rx predniSONE [Deltasone] 20 mg PO DAILY #5 tablet 05/13/19 Unknown Rx ED Physical Exam - General Limitations: No Limitations General appearance: alert, in no apparent distress - Head Head exam: Present: atraumatic, normocephalic - Eye Eye exam: Present: normal appearance - ENT ENT exam: Present: mucous membranes moist - Neck Neck exam: Present: normal inspection - Respiratory Respiratory exam: Present: normal lung sounds bilaterally. Absent: respiratory distress - Cardiovascular Cardiovascular Exam: Present: regular rate, normal rhythm. Absent: systolic murmur, diastolic murmur, rubs, gallop - GI/Abdominal GI/Abdominal exam: Present: soft, normal bowel sounds - Extremities Exam Extremities exam: Present: normal inspection - Back Exam Back exam: Present: normal inspection - Neurological Exam Neurological exam: Present: alert, oriented X3 - Psychiatric Psychiatric exam: Present: normal affect, normal mood - Skin Skin exam: Present: warm, dry, intact, normal color. Absent: rash ED Course Vital Signs 05/13/19 05/13/19 05/13/19 09:15 10:52 11:00 Temperature 98.3 F Pulse Rate 65 73 66 Respiratory 18 16 18 Rate Blood Pressure 171/89 142/80 Blood Pressure 140/89 [Right] O2 Sat by Pulse 99 97 98 Oximetry 05/13/19 11:15 Temperature Pulse Rate 69 Respiratory 15 Rate Blood Pressure 149/86 Blood Pressure [Right] O2 Sat by Pulse 97 Oximetry MARGAUX score - Margaux Score Age > 65: (0) No Aspirin use within the Past 7 Days: (0) No 3 or more CAD Risk Factors: (0) No 2 or more Angina events in past 24 hrs: (1) Yes Known CAD with more than 50% Stenosis: (0) No Elevated Cardiac Markers: (0) No ST Deviation Greater than 0.5mm: (0) No MARGAUX Score: 1 ED Medical Decision Making - Lab Data Result diagrams: 05/13/19 10:52 05/13/19 10:52 - EKG Data EKG shows normal: sinus rhythm Rate: normal - EKG Data When compared to previous EKG there are: no significant change Interpretation: no acute changes - Radiology Data Radiology results: report reviewed, image reviewed - Medical Decision Making Labs 05/13/19 05/13/19 05/13/19 10:52 10:52 10:52 WBC 6.5 RBC 4.44 Hgb 12.2 Hct 37.0 MCV 83 MCH 27 L MCHC 33 RDW 14.3 Plt Count 356 Lymph % (Auto) 20.3 Dundy % (Auto) 7.0 Eos % (Auto) 2.8 Baso % (Auto) 0.5 Lymph # 1.3 Dundy # 0.5 Eos # 0.2 Baso # 0.0 Seg Neutrophils % 69.4 Seg Neutrophils # 4.5 Sodium 142 Potassium 3.4 L Chloride 105.7 Carbon Dioxide 23 Anion Gap 17 BUN 9 Creatinine 0.6 L Estimated GFR > 60 BUN/Creatinine Ratio 15 Glucose 110 H Calcium 8.6 Troponin T < 0.010 HCG, Qual Negative Vital Signs 05/13/19 05/13/19 05/13/19 09:15 10:52 11:00 Temperature 98.3 F Pulse Rate 65 73 66 Respiratory 18 16 18 Rate Blood Pressure 171/89 142/80 Blood Pressure 140/89 [Right] O2 Sat by Pulse 99 97 98 Oximetry 05/13/19 11:15 Temperature Pulse Rate 69 Respiratory 15 Rate Blood Pressure 149/86 Blood Pressure [Right] O2 Sat by Pulse 97 Oximetry labs noted 12 lead NAP xray noted pt educated on the need to follow up for additional tests to help with her pain. she understands. taking po. ambulatory. nad on dc. full rom and pain worse with movement. - Differential Diagnosis muscle pain/ pinched nerve Critical care attestation.: If time is entered above; I have spent that time in minutes in the direct care of this critically ill patient, excluding procedure time. ED Disposition Clinical Impression: Atypical chest pain Disposition: DC-01 TO HOME OR SELFCARE Is pt being admited?: No Does the pt Need Aspirin: No Condition: Stable Instructions: Chest Pain (ED) Prescriptions: predniSONE [Deltasone] 20 mg PO DAILY #5 tablet Cyclobenzaprine [Flexeril] 10 mg PO TID PRN #10 tablet PRN Reason: Muscle Spasm Referrals: NIA NELSON MD [Staff Physician] - 3-5 Days Time of Disposition: 12:25
[2019-05-13 12:52] VITALS: BP 135/74
== END 2019-05-13 12:36 | disposition home or self-care (01) ==
LOC: ED 09:08
DX: R07.89 Other chest pain (principal); I10 Essential (primary) hypertension; Z98.51 Tubal ligation status; Z79.899 Other long term (current) drug therapy
CPT/HCPCS: 36415; 71045; 80048; 84484; 84703; 85025; 93005; 93010